=== PATIENT | male | born 1995 | race Caucasian/White ===

== ENCOUNTER 2020-12-15 10:29 | Emergency (ER) | payer OTHER ==
[2020-12-15] MEDS ORDERED: RECTIV30 GM PR (13:48)
[2020-12-15] MEDS ORDERED: ALDARA1 EACH TP (13:48)
== END 2020-12-15 14:00 | disposition home or self-care (01) ==
LOC: ER1 10:29
DX: A63.0 Anogenital (venereal) warts (principal); K60.2 Anal fissure, unspecified
CPT/HCPCS: 99283